=== PATIENT | female | born 1965 | race American Indian/Alaskan Native ===

== ENCOUNTER 2016-11-22 05:02 | Emergency (ER) | payer OTHER ==
[2016-11-22 07:28] VITALS: BP 157/98
--- NOTE | 2016-11-22 09:14 | Emergency Department Report ---
ED ENT HPI - General Chief complaint: Upper Respiratory Infection Stated complaint: SINUS PRESSURE, COUGH Time Seen by Provider: 11/22/16 08:56 Source: patient Mode of arrival: Ambulatory Limitations: No Limitations - History of Present Illness Initial comments: 51-year-old female past medical history none presents with complaint of 5-6 days of sore throat and body aches and subjective fever chills. States that her throat feels uncomfortable when she swallows solids no difficulty swallowing liquids. States that her primary symptom is of sore throat and some nasal congestion. Denies any drooling visible protruding audible stridor no trismus during clinical exam speaking in full sentences awake alert and oriented 3 MD complaint: sore throat Onset/Timin -: days(s) Location: throat Severity: moderate Severity scale (0 -10): 6 Quality: aching Consistency: intermittent Improves with: none Worsens with: swallowing - Related Data Previous Rx's Medication Instructions Recorded Last Taken Type Amoxicillin/K Clav Tab [Augmentin 1 tab PO Q12HR #14 tab 11/22/16 Unknown Rx 875 mg] Benzocaine/Menthol [Cepacol Sore 1 each MM Q4H PRN #18 lozenge 11/22/16 Unknown Rx Throat Lozenge] Ibuprofen [Motrin] 600 mg PO Q8H PRN #25 tablet 11/22/16 Unknown Rx Allergies Allergy/AdvReac Type Severity Reaction Status Date / Time No Known Allergies Allergy Verified 11/22/16 07:29 ED Dental HPI - General Chief complaint: Upper Respiratory Infection Stated complaint: SINUS PRESSURE, COUGH Time Seen by Provider: 11/22/16 08:56 Source: patient Mode of arrival: Ambulatory Limitations: No Limitations - Related Data Previous Rx's Medication Instructions Recorded Last Taken Type Amoxicillin/K Clav Tab [Augmentin 1 tab PO Q12HR #14 tab 11/22/16 Unknown Rx 875 mg] Benzocaine/Menthol [Cepacol Sore 1 each MM Q4H PRN #18 lozenge 11/22/16 Unknown Rx Throat Lozenge] Ibuprofen [Motrin] 600 mg PO Q8H PRN #25 tablet 11/22/16 Unknown Rx Allergies Allergy/AdvReac Type Severity Reaction Status Date / Time No Known Allergies Allergy Verified 11/22/16 07:29 ED Review of Systems ROS: Stated complaint: SINUS PRESSURE, COUGH Other details as noted in HPI Constitutional: denies: chills, fever Eyes: denies: eye pain, eye discharge, vision change ENT: throat pain. denies: ear pain Respiratory: denies: cough, shortness of breath, wheezing Cardiovascular: denies: chest pain, palpitations Endocrine: no symptoms reported Gastrointestinal: denies: abdominal pain, nausea, diarrhea Genitourinary: denies: urgency, dysuria, discharge Musculoskeletal: denies: back pain, joint swelling, arthralgia Skin: denies: rash, lesions Neurological: denies: headache, weakness, paresthesias Psychiatric: denies: anxiety, depression Hematological/Lymphatic: denies: easy bleeding, easy bruising ED Past Medical Hx - Past Medical History Previous Medical History?: No - Surgical History Past Surgical History?: Yes Additional Surgical History: wrist and right eye - Social History Smoking Status: Never Smoker Substance Use Type: Alcohol - Medications Home Medications: Home Medications Medication Instructions Recorded Confirmed Last Taken Type Amoxicillin/K Clav Tab [Augmentin 1 tab PO Q12HR #14 tab 11/22/16 Unknown Rx 875 mg] Benzocaine/Menthol [Cepacol Sore 1 each MM Q4H PRN #18 lozenge 11/22/16 Unknown Rx Throat Lozenge] Ibuprofen [Motrin] 600 mg PO Q8H PRN #25 tablet 11/22/16 Unknown Rx ED Physical Exam - General Limitations: No Limitations General appearance: alert, in no apparent distress - Head Head exam: Present: atraumatic, normocephalic - Eye Eye exam: Present: normal appearance, PERRL, EOMI - ENT ENT exam: Present: mucous membranes moist - Expanded ENT Exam Expanded Mouth exam: Present: normal external inspection Teeth exam: Present: normal inspection Throat exam: Positive: tonsillar erythema, tonsillar exudate (visible tonsillar exudates on both tonsillar pillars oropharynx patent otherwise no peritonsillar abscess no uvular deviation) - Neck Neck exam: Present: normal inspection, full ROM - Respiratory Respiratory exam: Present: normal lung sounds bilaterally. Absent: respiratory distress - Cardiovascular Cardiovascular Exam: Present: regular rate, normal rhythm. Absent: systolic murmur, diastolic murmur, rubs, gallop - GI/Abdominal GI/Abdominal exam: Present: soft, normal bowel sounds - Extremities Exam Extremities exam: Present: normal inspection - Back Exam Back exam: Present: normal inspection - Neurological Exam Neurological exam: Present: alert, oriented X3 - Psychiatric Psychiatric exam: Present: normal affect, normal mood - Skin Skin exam: Present: warm, dry, intact, normal color. Absent: rash ED Course Vital Signs 11/22/16 07:26 Temperature 98.5 F Pulse Rate 77 Respiratory 16 Rate Blood Pressure 157/98 O2 Sat by Pulse 100 Oximetry ED Medical Decision Making - Medical Decision Making A/P: Pharyngitis 1-naproxen when necessary, throat lozenges 2-Augmentin 875 twice a day 7 days 3- follow up with primary care doctor 4-patient tolerating by mouth without any difficulty no signs of [employer] no angioedema on clinical exam oropharynx is patent Critical care attestation.: If time is entered above; I have spent that time in minutes in the direct care of this critically ill patient, excluding procedure time. ED Disposition Clinical Impression: Sore throat Disposition: DISCHARGED TO HOME OR SELFCARE Is pt being admited?: No Does the pt Need Aspirin: No Condition: Stable Instructions: Strep Throat (ED), Tonsillitis (ED) Prescriptions: Amoxicillin/K Clav Tab [Augmentin 875 mg] 1 tab PO Q12HR #14 tab Benzocaine/Menthol [Cepacol Sore Throat Lozenge] 1 each MM Q4H PRN #18 lozenge PRN Reason: Sore Throat Ibuprofen [Motrin] 600 mg PO Q8H PRN #25 tablet PRN Reason: Pain Referrals: CHANNING GLEASON JR, MD [Staff Physician] - 3-5 Days Forms: Work/School Release Form(ED) Time of Disposition: 09:13
== END 2016-11-22 09:40 | disposition home or self-care (01) ==
LOC: ED 05:02
DX: J02.9 Acute pharyngitis, unspecified (principal); M79.1 Myalgia
CPT/HCPCS: 99282